=== PATIENT | female | born 1960 | race Caucasian/White ===

== ENCOUNTER 2018-10-19 07:44 | Day surgery (SDC) | payer BC ==
[~2018-10-19 07:44] MED LIST: ACETAMINOPHEN 1,000 MG/100 ML BTL IV ONE; FAMOTIDINE 20MG TABLET PO ONE; MECLIZINE 25 MG TABLET PO ONE; METOCLOPRAMIDE 10 MG TABLET PO ONE
[2018-10-19] MEDS ORDERED: HYDROCODONE/APAP 5/325MG TABLET PO ONE ×2 (07:45→11:11)
[2018-10-19] MEDS ORDERED: PROPOFOL 10 MG/ML VIAL IV ONE (07:45)
[2018-10-19] MEDS ORDERED: ROCURONIUM BROMIDE 50MG/5ML VIAL IV ONE (07:45)
[2018-10-19] MEDS ORDERED: GLYCOPYRROLATE 0.2 MG/ML ML IV ONE (07:45)
[2018-10-19] MEDS ORDERED: SUCCINYLCHOLINE 20 MG/ML 10ML IVP ONE (07:45)
[2018-10-19] MEDS ORDERED: ONDANSETRON HCL IV 4 MG/2 ML VIAL IVP ONE (07:45)
[2018-10-19] MEDS ORDERED: SEVOFLURANE 250 ML INH ONE (07:45)
[2018-10-19] MEDS ORDERED: NEOSTIGMINE 1 MG/1 ML,10ML VIAL IV ONE (07:45)
[2018-10-19] MEDS ORDERED: LIDOCAINE 2% MDV (20MG/ML) 20ML VIAL IV ONE (07:45)
[2018-10-19] MEDS ORDERED: MIDAZOLAM HCL 2MG/2ML VIAL IV ONE (07:45)
[2018-10-19] MEDS ORDERED: SUGAMMADEX SODIUM 200 MG/2 ML VIAL IV ONE (07:45)
[2018-10-19] MEDS ORDERED: FENTANYL PF 100MCG/2ML VIAL IV ONE (07:45)
[2018-10-19] MEDS ORDERED: KETOROLAC 30 MG/ML VIAL IVP ONE (07:45)
[2018-10-19] MEDS ORDERED: RINGERS SOLUTION,LACTATED 1,000 ML IV ONE ×2 (08:35→10:59)
[2018-10-19] MEDS ORDERED: BUPIVACAINE 0.25% W/EPI MPF 30ML VIAL SQ ONE (10:18)
[2018-10-19] MEDS: MORPHINE SULFATE 4 MG/ML VIAL ONE ×3 (10:43→10:54)
[2018-10-19] MEDS ORDERED: MORPHINE SULFATE 10 MG/ML VIAL IVP ONE (10:43)
[2018-10-19] MEDS ORDERED: RINGERS SOLUTION,LACTATED 150 ML IV ONE (10:58)
--- NOTE | 2018-10-20 09:50 | Operative Note ---
DATE OF SERVICE: 10/19/2018. DATE OF SURGERY: 10/19/2018. PREOPERATIVE DIAGNOSIS: Gallstone pancreatitis. POSTOPERATIVE DIAGNOSIS: Gallstone pancreatitis. OPERATION: Laparoscopic cholecystectomy. SURGEON: Amilcar Nye D.O. REFERRING PHYSICIAN: Yaritza Rucker M.D. INDICATION: Patient is a 58-year-old female who was hospitalized for pancreatitis due to alcohol abuse and gallstones. We did discuss cholecystectomy versus medical management. She desires surgical intervention. Risks include, but not limited to, bleeding, infection, ductal injury, possible conversion to open, postoperative bile leak. She understood this fully. PROCEDURE: After informed consent was signed and questions answered, she was taken to the operating room and placed in the supine position. General anesthesia was administered per the Department of Anesthesia. Patient's abdomen was prepped and draped in sterile fashion. The supraumbilical region was anesthetized with a total of 2 mL of 0.25% Sensorcaine with epinephrine. A 2 cm supraumbilical incision was made. This was carried down to the anterior rectus fascia. This was incised. Idania clamps were placed on the fascial edges and brought up into the wound. Stay sutures of 0 Vicryl placed. The posterior rectus sheath was identified and incised. The peritoneal cavity was entered bluntly. At this time, a 10 mm blunt Eva port was placed and adequate pneumoperitoneum established. Under direct visualization, an additional 5 mm epigastric and 2 5 mm right subcostal ports were placed. The gallbladder was identified. It was retracted in a cephalad and lateral direction, opening up the angle of Calot. The patient was also placed in steep reverse Trendelenburg. The hepatocystic triangle was thoroughly dissected out. There was no aberrant anatomy, no posterior ductal structures. The cystic duct and cystic artery were clearly identified. Each one was doubly clipped and cut in a standard fashion. The gallbladder essentially peeled off the liver bed with the Main harmonic. This was placed in EndoCatch bag and brought out through the umbilical port. The right upper quadrant was rechecked and found to be hemostatic. No bleeding. No bile leak. No bowel injury noted. Patient was leveled out and pneumoperitoneum was released. All ports were removed. The fascia was closed with 0 Vicryl in a figure-of-8 fashion. Skin in all ports closed with 4-0 Vicryl. She was taken to the recovery room in satisfactory condition. FINDINGS AT TIME OF SURGERY: Chronic cholecystitis. CC: MD ANTONY Valladares
== END 2018-10-19 11:33 | disposition home or self-care (01) ==
LOC: SUR 07:44
PROVIDERS: ATTEND Surgery
DX: K85.10 Biliary acute pancreatitis without necrosis or infection (principal); K81.1 Chronic cholecystitis; E03.9 Hypothyroidism, unspecified; G47.33 Obstructive sleep apnea (adult) (pediatric)
CPT/HCPCS: J0330; J1885; J2270; J2405; J2710; J3490; J7120